=== PATIENT | male | born 1950 | race Caucasian/White ===

== ENCOUNTER 2022-11-04 04:41 | Day surgery (SDC) | payer OTHER, MEDICARE ==
[2022-11-02 11:36] VITALS: BMI 24.3
[2022-11-04] MEDS ORDERED: LIDOCAINE HCL 2% JELLY 10 ML CARTRIDGE ONE (08:31)
[2022-11-04] MEDS ORDERED: KETOROLAC TROMETHAMINE 30 MG/1 ML VIAL ONE (08:31)
[2022-11-04 08:51] VITALS: TEMP 97.8
[2022-11-04 09:31] VITALS: BP 128/76; PULSE 71; RESP 20
== END 2022-11-04 09:46 | disposition home or self-care (01) ==
LOC: JASU-ENDO 04:41
PROVIDERS: ATTEND Internal Medicine Gastroenterology
PROC: 06LY8CC Occlusion of Hemorrhoidal Plexus with Extraluminal Device, Via Natural or Artificial Opening Endoscopic (ICD-10-PCS; principal; 2022-11-04 08:00)
DX: Z12.11 Encounter for screening for malignant neoplasm of colon (principal); K64.8 Other hemorrhoids; K62.5 Hemorrhage of anus and rectum; K57.30 Diverticulosis of large intestine without perforation or abscess without bleeding; Z83.71 Family history of colonic polyps